=== PATIENT | male | born 1995 | race Caucasian/White ===

== ENCOUNTER 2017-03-07 10:24 | Emergency (ER) | payer OTHER ==
[2017-03-07 12:25] VITALS: BP 130/67
== END 2017-03-07 12:25 | disposition home or self-care (01) ==
LOC: ED 10:24
DX: S61.412A Laceration without foreign body of left hand, initial encounter (principal); X58.XXXA Exposure to other specified factors, initial encounter; Y93.89 Activity, other specified; Y99.8 Other external cause status; Y92.89 Other specified places as the place of occurrence of the external cause
CPT/HCPCS: 90714; J0690